=== PATIENT | male | born 1995 | race African-American/Black ===

== ENCOUNTER 2017-06-23 10:05 | Emergency (ER) | payer MEDICAID ==
[~2017-06-23] VITALS: Ht 172.7 cm; Wt 80.0 kg
[2017-06-23] MEDS ORDERED: KEPP500 PO (10:12)
[2017-06-23] MEDS ORDERED: LEVETIRACETAM 1000MG/100ML 100 ML IV ONE (10:45)
[2017-06-23 11:13] LABS: BASOPHILS % 0.5 % (0.0-2.0); EOSINOPHILS % 3.5 % (0.0-5.0); HEMOGLOBIN. 13.6 g/dL (14.0-18.0); LYMPHOCYTES % 31.7 % (20.0-50.0); MEAN CORPUSCULAR HEMOGLOBIN 25.5 pg (28.0-32.0); MEAN CORPUSCULAR VOLUME 79.1 fL (80.0-94.0); MONOCYTES % 10.2 % (2.0-8.0); NEUTROPHILS % 54.1 % (40.0-76.0); PLATELET 223 x1000/uL (130-400); RED BLOOD CELL COUNT 5.31 mill/uL (4.7-6.1); RED CELL DISTRIBUTION WIDTH 14.8 % (11.6-14.6)
[2017-06-23 11:19] LABS: CHLORIDE 106 mEq/L (98-107)
[2017-06-23 11:27] LABS: CARBON DIOXIDE 29 mEq/L (21-32); ETHANOL BLOOD < 10 mg/dL
[2017-06-23 12:55] LABS: CLARITY URINE CLEAR (CLEAR); COLOR URINE YELLOW (YELLOW); KETONES URINE NEGATIVE (NEGATIVE); LEUKOCYTE ESTERASE URINE NEGATIVE (NEGATIVE); NITRITE URINE NEGATIVE (NEGATIVE); OCCULT BLOOD URINE NEGATIVE (NEGATIVE); PROTEIN URINE NEGATIVE (NEGATIVE); SPECIFIC GRAVITY URINE 1.024 (1.005-1.030)
[2017-06-23] MEDS ORDERED: ACETAMINOPHEN 325MG TABLET PO ONE (13:15)
[2017-06-23 14:12] LABS: *AMPHETAMINES SCREEN URINE NEGATIVE (NEGATIVE); *BARBITURATES SCREEN URINE NEGATIVE (NEGATIVE); *BENZODIAZEPINES SCREEN URINE NEGATIVE (NEGATIVE); *COCAINE SCREEN URINE NEGATIVE (NEGATIVE); CANNABINOID URINE SCREEN NEGATIVE (NEGATIVE); METHADONE URINE SCREEN NEGATIVE (NEGATIVE); OPIATES URINE SCREEN NEGATIVE (NEGATIVE); PHENCYCLIDINE URINE SCREEN NEGATIVE (NEGATIVE)
[2017-06-23 14:20] VITALS: BP 110/65
== END 2017-06-23 15:08 | disposition home or self-care (01) ==
LOC: ER 10:05
DX: G40.909 Epilepsy, unspecified, not intractable, without status epilepticus (principal); F79 Unspecified intellectual disabilities
CPT/HCPCS: 36415; 80053; 80305; 81003; 82962; 85025; 96365; 99284; G0482; J1953; Z7610

== ENCOUNTER 2017-07-14 02:41 | Emergency (ER) | payer MEDICAID, OTHER ==
[~2017-07-14] VITALS: Ht 172.7 cm; Wt 68.0 kg
[~2017-07-14 02:41] MED LIST: KEPP500 PO
[2017-07-14 03:00] VITALS: BP 118/61
[2017-07-14] MEDS ORDERED: SODIUM CHLORIDE 0.9% 1,000 ML IV ONE (03:00)
[2017-07-14] MEDS ORDERED: LEVETIRACETAM 500MG PREMIX 100 ML IV ONE (03:00)
[2017-07-14] MEDS ORDERED: ONDANSETRON HCL 4MG/2ML INJ IV STA (03:00)
[2017-07-14] MEDS ORDERED: LEVETIRACETAM 1,000 MG in SODIUM CHLORIDE 0.9% 100 ML IV NR (03:15)
[2017-07-14 03:20] LABS: BASOPHILS % 0.8 % (0.0-2.0); EOSINOPHILS % 6.2 % (0.0-5.0); HEMATOCRIT. 43.3 % (42.0-52.0); HEMOGLOBIN. 14.1 g/dL (14.0-18.0); LYMPHOCYTES % 34.6 % (20.0-50.0); MEAN CORPUSCULAR HEMOGLOBIN 25.6 pg (28.0-32.0); MEAN CORPUSCULAR VOLUME 78.3 fL (80.0-94.0); MEAN PLATELET VOLUME 8.9 fl (7.4-10.4); MONOCYTES % 9.5 % (2.0-8.0); NEUTROPHILS % 48.9 % (40.0-76.0); PLATELET 272 x1000/uL (130-400); RED BLOOD CELL COUNT 5.53 mill/uL (4.7-6.1); RED CELL DISTRIBUTION WIDTH 14.2 % (11.6-14.6)
[2017-07-14 03:36] LABS: CHLORIDE 103 mEq/L (98-107)
== END 2017-07-14 05:30 | disposition home or self-care (01) ==
LOC: EDBD → ER 02:41
DX: G40.909 Epilepsy, unspecified, not intractable, without status epilepticus (principal); E87.6 Hypokalemia; Z87.820 Personal history of traumatic brain injury; Z91.14 Patient's other noncompliance with medication regimen; Z93.1 Gastrostomy status
CPT/HCPCS: 36415; 80053; 83690; 85025; 96365; 96375; 99284; J1953; J2405; J7030; Z7610; J7050

== ENCOUNTER 2018-05-21 19:35 | Inpatient (IN) | payer MEDICAID ==
[~2018-05-21] VITALS: Ht 182.9 cm; Wt 73.9 kg
[2018-05-21] MEDS ORDERED: SODIUM CHLORIDE 0.9% 1,000 ML IV ONE (19:44)
[2018-05-21] MEDS ORDERED: LEVETIRACETAM 1000MG/100ML 100 ML IV ONE (19:45)
[2018-05-21] MEDS ORDERED: LORAZEPAM 2MG/ML CPJ IV ONE (20:00)
[2018-05-21] MEDS ORDERED: LORAZEPAM 2MG/ML CPJ ONE (20:06)
[2018-05-21 21:17] LABS: CLARITY URINE CLEAR (CLEAR); COLOR URINE YELLOW (YELLOW); KETONES URINE 1+ (NEGATIVE); LEUKOCYTE ESTERASE URINE NEGATIVE (NEGATIVE); NITRITE URINE NEGATIVE (NEGATIVE); OCCULT BLOOD URINE NEGATIVE (NEGATIVE); PROTEIN URINE TRACE (NEGATIVE); SPECIFIC GRAVITY URINE 1.028 (1.005-1.030)
[2018-05-21 21:30] LABS: *AMPHETAMINES SCREEN URINE NEGATIVE (NEGATIVE); *BARBITURATES SCREEN URINE NEGATIVE (NEGATIVE); *BENZODIAZEPINES SCREEN URINE PRESUMTIVE POSITIVE (NEGATIVE); *COCAINE SCREEN URINE NEGATIVE (NEGATIVE); METHADONE URINE SCREEN NEGATIVE (NEGATIVE); OPIATES URINE SCREEN NEGATIVE (NEGATIVE)
[2018-05-21 21:31] LABS: CANNABINOID URINE SCREEN PRESUMTIVE POSITIVE (NEGATIVE); PHENCYCLIDINE URINE SCREEN NEGATIVE (NEGATIVE)
[2018-05-21 21:45] LABS: HEMATOCRIT. 42.7 % (42.0-52.0); HEMOGLOBIN. 13.9 g/dL (14.0-18.0); MEAN CORPUSCULAR HEMOGLOBIN 26.6 pg (28.0-32.0); MEAN CORPUSCULAR VOLUME 81.7 fL (80.0-94.0); MEAN PLATELET VOLUME 9.9 fl (7.4-10.4); PLATELET 192 x1000/uL (130-400); RED BLOOD CELL COUNT 5.22 mill/uL (4.7-6.1); RED CELL DISTRIBUTION WIDTH 14.7 % (11.6-14.6)
[2018-05-21 21:50] LABS: CHLORIDE 104 mEq/L (98-107)
[2018-05-21 21:54] LABS: ETHANOL BLOOD < 10 mg/dL
[2018-05-21 22:20] LABS: PLATELET ESTIMATE NORMAL
[2018-05-22 11:00] VITALS: BP 117/72
[2018-05-22 12:00] VITALS: BP 117/72
[2018-05-22] MEDS ORDERED: DOCUSATE SODIUM 100MG CAPSULE PO PRN (12:00)
[2018-05-22] MEDS ORDERED: HYDROCODONE/ACETAMINOPHEN 5/325MG TABLET PO PRN (12:00)
[2018-05-22] MEDS ORDERED: CLONIDINE 0.1MG TABLET PO PRN (12:00)
[2018-05-22] MEDS ORDERED: ACETAMINOPHEN 325MG TABLET PO PRN (12:00)
[2018-05-22] MEDS ORDERED: ONDANSETRON HCL 4MG/2ML INJ IV PRN (12:00)
[2018-05-22] MEDS ORDERED: IPRATROPIUM/ALBUTEROL 0.5-3(2.5)MG/3ML NEB INH PRN (12:00)
[2018-05-22] MEDS ORDERED: INFLUENZA VIRUS VACCINE(AFLURIA) 0.5ML SYR IM ONE (13:30)
[2018-05-22] MEDS ORDERED: PNEUMOCOCCAL 23-VAL P-SAC VAC 0.5 ML IM ONE (13:30)
[2018-05-22 16:00] VITALS: BP 104/61
[2018-05-22] MEDS ORDERED: LEVETIRACETAM 500 MG in SODIUM CHLORIDE 0.9% 100 ML IV SCH (16:00)
[2018-05-22 20:00] VITALS: BP 94/53
[2018-05-22] MEDS: LEVETIRACETAM 500MG TABLET PO SCH (20:25)
[2018-05-23] VITALS: BP 113/66
[2018-05-23 00:17] LABS: PHOSPHORUS 3.7 mg/dL (2.5-4.9)
[2018-05-23 04:00] VITALS: BP 119/54
[2018-05-23 06:56] LABS: BASOPHILS % 0.9 % (0.0-2.0); EOSINOPHILS % 3.4 % (0.0-5.0); HEMATOCRIT. 41.7 % (42.0-52.0); HEMOGLOBIN. 13.6 g/dL (14.0-18.0); LYMPHOCYTES % 37.3 % (20.0-50.0); MEAN CORPUSCULAR HEMOGLOBIN 26.5 pg (28.0-32.0); MEAN CORPUSCULAR VOLUME 81.4 fL (80.0-94.0); MEAN PLATELET VOLUME 9.5 fl (7.4-10.4); MONOCYTES % 11.6 % (2.0-8.0); NEUTROPHILS % 46.8 % (40.0-76.0); PLATELET 210 x1000/uL (130-400); RED BLOOD CELL COUNT 5.13 mill/uL (4.7-6.1); RED CELL DISTRIBUTION WIDTH 14.5 % (11.6-14.6)
[2018-05-23 07:06] LABS: CHLORIDE 106 mEq/L (98-107)
[2018-05-23 07:10] LABS: FOLIC ACID (FOLATE) SERUM 13.3 ng/mL (>5.38)
[2018-05-23 08:00] VITALS: BP 103/65
[2018-05-23] MEDS: LEVETIRACETAM 500MG TABLET PO SCH ×2 (08:45→21:07)
[2018-05-23 12:05] VITALS: BP 105/54
[2018-05-23 16:12] VITALS: BP 102/59
[2018-05-23 20:00] VITALS: BP 112/57
[2018-05-24] VITALS (7 sets, daily range): BP systolic 98–113; BP diastolic 42–63
[2018-05-24 07:04] LABS: BASOPHILS % 0.7 % (0.0-2.0); EOSINOPHILS % 4.2 % (0.0-5.0); HEMATOCRIT. 41.3 % (42.0-52.0); HEMOGLOBIN. 13.6 g/dL (14.0-18.0); LYMPHOCYTES % 35.5 % (20.0-50.0); MEAN CORPUSCULAR HEMOGLOBIN 26.8 pg (28.0-32.0); MEAN CORPUSCULAR VOLUME 81.3 fL (80.0-94.0); MEAN PLATELET VOLUME 9.7 fl (7.4-10.4); MONOCYTES % 11.4 % (2.0-8.0); NEUTROPHILS % 48.2 % (40.0-76.0); PLATELET 210 x1000/uL (130-400); RED BLOOD CELL COUNT 5.08 mill/uL (4.7-6.1); RED CELL DISTRIBUTION WIDTH 14.3 % (11.6-14.6)
[2018-05-24 07:14] LABS: CHLORIDE 104 mEq/L (98-107)
[2018-05-24] MEDS: LEVETIRACETAM 500MG TABLET PO SCH (08:44)
== END 2018-05-24 22:53 | disposition home or self-care (01) | DRG 53 ==
LOC: ER 19:35 → 7WST 21:22 → EDBD 21:22 → EDBEDREQTM 21:26 → EDBEDREQ 21:26 → ENRESERV 05-22 09:52
PROVIDERS: ADMIT Internal Medicine; ATTEND Internal Medicine
DX: G40.909 Epilepsy, unspecified, not intractable, without status epilepticus (principal); Z93.1 Gastrostomy status; G31.9 Degenerative disease of nervous system, unspecified; Z87.820 Personal history of traumatic brain injury; Z99.3 Dependence on wheelchair
CPT/HCPCS: 36415; 71045; 80048; 80061; 80305; 82542; 82607; 82746; 83036; 83605; 83735; 84100; 84443; 90686; 90732; 96365; 96366; 96375; 97162; 97535; 99291; G0482; J1953; J2060; J7030; J7050

== ENCOUNTER 2020-05-16 11:38 | Inpatient (IN) | payer MEDICAID, OTHER ==
[~2020-05-16] VITALS: Ht 177.8 cm; Wt 86.7 kg
[2020-05-16] MEDS ORDERED: LEVETIRACETAM 500MG PREMIX 100 ML IV ONE (13:45)
[2020-05-16] MEDS ORDERED: ACETAMINOPHEN 325MG TABLET PO ONE (14:15)
[2020-05-16] MEDS ORDERED: LORAZEPAM 2MG/ML CPJ IV ONE (16:45)
[2020-05-16] MEDS ORDERED: SODIUM CHLORIDE 0.9% 1,000 ML IV ONE ×2 (16:45)
[2020-05-16] MEDS ORDERED: LEVETIRACETAM 1000MG PREMIX 100 ML IV ONE (16:45)
[2020-05-16 17:11] LABS: BASOPHILS % 0.4 % (0.0-2.0); HEMATOCRIT. 41.5 % (42.0-52.0); HEMOGLOBIN. 13.7 g/dL (14.0-18.0); LYMPHOCYTES % 9.3 % (20.0-50.0); MEAN CORPUSCULAR HEMOGLOBIN 26.4 pg (28.0-32.0); MEAN CORPUSCULAR VOLUME 80.1 fL (80.0-94.0); MEAN PLATELET VOLUME 9.6 fl (7.4-10.4); MONOCYTES % 11.6 % (2.0-8.0); NEUTROPHILS % 78.7 % (40.0-76.0); PLATELET 215 x1000/uL (130-400); RED BLOOD CELL COUNT 5.19 mill/uL (4.7-6.1)
[2020-05-16 17:20] LABS: CHLORIDE 102 mEq/L (98-107); INR 1.2; PROTHROMBIN TIME 12.3 sec (9.6-11.0)
[2020-05-16 17:24] LABS: CLARITY URINE CLEAR (CLEAR); COLOR URINE DARK YELLOW (YELLOW); KETONES URINE 3+ (NEGATIVE); LEUKOCYTE ESTERASE URINE TRACE (NEGATIVE); NITRITE URINE NEGATIVE (NEGATIVE); OCCULT BLOOD URINE NEGATIVE (NEGATIVE); PROTEIN URINE 1+ (NEGATIVE); SPECIFIC GRAVITY URINE 1.038 (1.005-1.030)
[2020-05-16 17:25] LABS: ETHANOL BLOOD < 10 mg/dL
[2020-05-16 17:26] LABS: PHOSPHORUS 3.5 mg/dL (2.5-4.9)
[2020-05-16 17:30] LABS: CREATINE KINASE 660 IU/L (39-308)
[2020-05-16 17:32] LABS: BG BASE EXCESS 4.7 mmol/L (-2.0-2.0); BG CARBOXYHEMOGLOBIN 0.8 % (0.5-1.5); BG DEOXYHEMOGLOBIN 4.3 % (0.0-5.0); BG FRACTION INSPIRED OXYGEN 21; BG HCO3 ACT 29.8 mmol/L (22.0-26.0); BG METHEMOGLOBIN 0.2 % (0.0-1.5); BG OXYGEN SATURATION 95.7 % (92.0-98.5); BG OXYHEMOGLOBIN 94.7 % (94.0-97.0); BG PO2 75.8 mmHg (75.0-100.0); BG SAMPLE SITE RIGHT BRACHIAL; BG TOTAL HEMOGLOBIN 14.4 g/dL (12.0-18.0); BG VENT MODE ROOM AIR
[2020-05-16 17:35] LABS: CARBAMAZEPINE < 0.5 ug/mL (4-12); PHENOBARBITAL < 2.1 ug/mL (15.0-40.0); VALPROIC ACID < 3.0 ug/mL (50-100)
[2020-05-16 17:58] LABS: *AMPHETAMINES SCREEN URINE NEGATIVE (NEGATIVE)
[2020-05-16 17:59] LABS: *BARBITURATES SCREEN URINE NEGATIVE (NEGATIVE); *BENZODIAZEPINES SCREEN URINE PRESUMTIVE POSITIVE (NEGATIVE); *COCAINE SCREEN URINE NEGATIVE (NEGATIVE); CANNABINOID URINE SCREEN PRESUMTIVE POSITIVE (NEGATIVE); METHADONE URINE SCREEN NEGATIVE (NEGATIVE); OPIATES URINE SCREEN NEGATIVE (NEGATIVE)
[2020-05-16 18:00] LABS: PHENCYCLIDINE URINE SCREEN NEGATIVE (NEGATIVE)
[2020-05-17] VITALS (8 sets, daily range): BP systolic 102–121; BP diastolic 58–80
[2020-05-17] MEDS ORDERED: ONDANSETRON HCL 4MG/2ML INJ IV PRN (10:30)
[2020-05-17] MEDS ORDERED: LORAZEPAM 2MG/ML CPJ IV PRN (10:30)
[2020-05-17] MEDS ORDERED: ACETAMINOPHEN 325MG TABLET PO PRN (10:30)
[2020-05-17] MEDS ORDERED: LEVE1000 MT ×2 (14:36)
[2020-05-17] MEDS ORDERED: LEVETIRACETAM 500MG TABLET PO SCH (21:00)
[2020-05-29] MEDS ORDERED: PHEN100C4 MT (12:18)
== END 2020-05-17 20:40 | disposition home or self-care (01) | DRG 53 ==
LOC: ER 11:53 → 3WST 18:12 → EDBEDREQSVC 18:15 → EDBEDREQ 18:15 → EDBEDREQTM 18:15 → ENRESERV 05-17 07:47
PROVIDERS: ADMIT Internal Medicine; ATTEND Internal Medicine
DX: G40.409 Other generalized epilepsy and epileptic syndromes, not intractable, without status epilepticus (principal); F12.90 Cannabis use, unspecified, uncomplicated; Z87.820 Personal history of traumatic brain injury; Z93.1 Gastrostomy status; Z93.0 Tracheostomy status
CPT/HCPCS: 36415; 36600; 71045; 80053; 80156; 80165; 80184; 80185; 80305; 80320; 81003; 82375; 82550; 82805; 83735; 84100; 84443; 84484; 85025; 93005; 99291; J1953; J7030; A4315; G0480